=== PATIENT | male | born 1970 | race Hispanic/Latino ===

== ENCOUNTER 2020-02-07 14:53 | Outpatient (CLI) | payer OTHER ==
--- NOTE | 2020-02-07 15:22 | RAD ---
EXAM: Chest 2 views: HISTORY: Dyspnea COMPARISON: None. FINDINGS: There is a normal-sized cardiomediastinal silhouette. A calcified granuloma seen in the left apex. Bi apical pleural thickening is seen. No consolidation or pleural effusion are seen. No acute osseous abnormality. IMPRESSION: No evidence of acute cardiopulmonary disease
--- NOTE | 2020-02-07 15:23 | RAD ---
EXAM: Sinus series HISTORY: Nasal septal deviation and difficulty breathing COMPARISON: None FINDINGS: No displaced calvarial fracture is seen. The bony nasal septum is midline without significa nt deviation. The visualized paranasal sinuses are well aerated without opacification. IMPRESSION: No significant sinus abnormality.
== END 2020-02-07 14:54 | disposition home or self-care (01) ==
LOC: BICRAD 14:53
PROVIDERS: ATTEND Internal Medicine
DX: J34.2 Deviated nasal septum (principal); R06.00 Dyspnea, unspecified
CPT/HCPCS: 70220; 71046

== ENCOUNTER 2021-12-15 12:19 | Outpatient (CLI) | payer OTHER | END 2021-12-15 12:20 | disposition home or self-care (01) | LOC: RAD 12:19 | PROVIDERS: ATTEND Family Medicine | DX: R05.3 Chronic cough (principal); R93.3 Abnormal findings on diagnostic imaging of other parts of digestive tract | CPT/HCPCS: 71046; 74220 ==